=== PATIENT | female | born 1955 | race Caucasian/White ===

== ENCOUNTER 2021-07-06 01:28 | Emergency (ER) | payer OTHER ==
[2021-07-06 02:05] LABS: EOSINOPHIL 1.6 % (0-7); HCT 44.7 % (37.0-47.0); HGB 14.5 g/dl (12.5-16.0); LYMPHOCYTE 31.6 % (15-48); MCH 32.7 pg (25.0-31.0); MCHC 32.4 g/dL (32.0-36.0); MCV 100.7 fL (78.0-100.0); MONOCYTE 7.2 % (0-12); MPV 10.5 fL (6.0-9.5); NEUTROPHIL 58.2 % (41-80); NRBC 0; PLT 237 K/uL (150-400); RBC 4.44 M/uL (4.20-5.40); RDW 12.2 % (11.5-14.0); WBC 6.8 K/uL (4.0-10.5)
[2021-07-06 02:09] LABS: BILIRUBIN NEGATIVE (NEGATIVE); BLOOD 3+ Ery/uL (NEGATIVE); COLOR RED (YELLOW); GLUCOSE (U) NORMAL (NORMAL); LEUKOCYTES NEGATIVE Leu/uL (NEGATIVE); NITRITE NEGATIVE (NEGATIVE); PROTEIN TRACE (LOW) mg/dL (NEGATIVE); SPECIFIC GRAVITY 1.025 (1.001-1.030)
[2021-07-06 02:10] LABS: CLARITY CLOUDY (CLEAR)
[2021-07-06 02:15] LABS: SQUAMOUS EPITHELIAL CELLS RARE; URINARY RBC TNTC; URINARY WBC RARE
[2021-07-06 02:18] LABS: ALBUMIN 3.8 g/dL (3.4-5.0); BILIRUBIN - TOTAL 0.3 mg/dL (0.2-1.0); BUN/CREAT RATIO (CALC) 35.2 RATIO; CREATININE 0.71 mg/dL (0.51-0.95); GLOBULIN (CALCULATION) 2.9 g/dL; POTASSIUM 4.4 mmol/L (3.5-5.1); TOTAL PROTEIN 6.7 g/dL (6.4-8.2)
[2021-07-06] MEDS ORDERED: FLOMAX0.4 MG PO (04:24)
[2021-07-06] MEDS ORDERED: ONDANSETRON ODT4 MG SL (04:24)
[2021-07-06] MEDS ORDERED: NORCO 5-325 TA1 EACH PO (04:24)
== END 2021-07-06 04:40 | disposition home or self-care (01) ==
LOC: FER 01:28
PROVIDERS: Emergency Medicine Emergency Medical Services
DX: N13.2 Hydronephrosis with renal and ureteral calculous obstruction (principal)
CPT/HCPCS: 36415; 80053; 81001; 83605; 84145; 85025; 87088; J1885